=== PATIENT | female | born 1955 | race Caucasian/White ===

== ENCOUNTER → 2016-07-16 | Outpatient (CLI) | payer BC ==
--- NOTE | 2016-07-16 11:01 | REP ---
MRI LEFT SHOULDER: TECHNIQUE: Axial T2 fat sat, gradient echo, sagittal oblique T2 fat sat, coronal oblique T1, T2 fat sat. There is ill-defined high signal in the supraspinatus tendon compatible with tendinopathy with a focal area in the distal end of the tendon consistent with a full thickness partial tear. Other rotator cuff tendons are intact. There are mild hypertrophic degenerative changes of the acromioclavicular joint with mild subchondral marrow edema. Acromion is slightly curved in shape. Biceps tendon is within the bicipital groove with no tenosynovitis. There is no Hill-Sachs deformity. Deltoid muscle demonstrates no abnormal signal. Biceps labral complex appears intact. I do not see evidence of a labral tear. No other abnormal bone marrow signal is seen. There is no occult fracture. There is a normal amount of joint fluid. There is no paralabral cyst. IMPRESSION: Partial full thickness tear distal supraspinatus tendon. Mild hypertrophic degenerative changes of acromioclavicular joint. No evidence of a labral tear. Signed by Seun Quintanilla MD 07/16/2016 03:28 P
== END ==
LOC: M RAD 09:35
PROVIDERS: ATTEND Orthopaedic Surgery
DX: M25.512 Pain in left shoulder (principal)

== ENCOUNTER → 2016-10-29 | Outpatient (CLI) | payer BC ==
--- NOTE | 2016-10-29 18:36 | REP ---
REASON: Idiopathic neuropathy. COMPARISON: None. Vertebral body height and alignment is within normal limits. The marrow signal is within normal limits. The conus ends at L1. There is moderate loss of disc hydrational signal at ever level with only posterior disc space height loss. Seen at L4-5 and L5-S1. There is no abnormal signal seen in the imaged portion of the spinal cord. At the L1-2 level there is no abnormality. There is no disc herniation, foraminal narrowing, or central canal stenosis. At the L2-3 level there is no abnormality. There is no disc herniation, foraminal narrowing, or central canal stenosis. Incidental note is made of a subcentimeter sized right aurea-foraminal nerve cyst. At the L3-4 level there is a minimal broad based annular bulge which contacts anterior surface of the thecal sac. There is no disc herniation, or foraminal narrowing, or central canal stenosis. At the L4-5 level there is a slight broad based annular bulge which contacts the anterior thecal sac. There is no disc herniation, foraminal narrowing, or central canal stenosis. At the L5-S1 level there is a slight broad based annular bulge. There is no disc herniation, foraminal narrowing, or central canal stenosis. IMPRESSION: Discogenic changes and other findings as described above. Signed by Romaine Meraz DO 10/29/2016 07:52 P
== END ==
LOC: M PLARAD 15:29
PROVIDERS: ATTEND Family Medicine
DX: G60.9 Hereditary and idiopathic neuropathy, unspecified (principal); M51.27 Other intervertebral disc displacement, lumbosacral region; M51.26 Other intervertebral disc displacement, lumbar region